=== PATIENT | male | born 2005 | race African-American/Black ===

== ENCOUNTER 2025-02-13 22:56 | Emergency (ER) | payer SELFPAY ==
[~2025-02-13] VITALS: Ht 167.6 cm; Wt 58.4 kg
[2025-02-13 23:00] VITALS: O2SAT 99
[2025-02-14] MEDS ORDERED: IBUPROFEN 600MG TABLET PO ONE (00:15)
[2025-02-14] MEDS ORDERED: NAPR220C61 MT (00:18)
[2025-02-14] MEDS ORDERED: TOPUD MT (00:18)
[2025-02-14 00:45] VITALS: BP 116/68; PULSE 91; RESP 16; TEMP 37.1; O2SAT 100
[2025-02-14] MEDS ORDERED: IBUPROFEN 600MG TABLET PO SCH (01:00)
== END 2025-02-14 00:46 | disposition home or self-care (01) ==
LOC: ER 22:56
DX: S49.91XA Unspecified injury of right shoulder and upper arm, initial encounter (principal); X58.XXXA Exposure to other specified factors, initial encounter; Y93.89 Activity, other specified; Y92.89 Other specified places as the place of occurrence of the external cause; Y99.8 Other external cause status
CPT/HCPCS: 73030; 99283